=== PATIENT | male | born 1985 | race Caucasian/White ===

== ENCOUNTER 2017-07-05 20:40 | Emergency (ER) | payer SELFPAY ==
[~2017-07-05] VITALS: Ht 188 cm; Wt 103.4 kg
[~2017-07-05 20:40] MED LIST: AMOX500T PO; PRED20 PO; Z.0.NO CURRENT MEDS
[2017-07-05 20:54] VITALS: BP 154/85; PULSE 83; RESP 18; TEMP 98.2; O2SAT 97
--- NOTE | 2017-07-05 21:01 | PD ---
HPI Chief Complaint: Flank/Kidney Pain Time Seen by Provider: 21:00 Travel History International Travel<30 days: No Contact w/Intl Traveler<30days: No Traveled to known affect area: No History of Present Illness HPI 31-year-old male came to the emergency room with sudden onset of left-sided flank pain 45 minutes ago. Patient says the pain came out of nowhere. It made him double over. Currently the pain is 9 out of 10. It comes in waves. No aggravating or relieving factors identified. Initially the pain was radiating down his left scrotum. Currently is localized into the left flank. He has never had this kind of pain before. He has never had any history of renal calculus. No history of hematuria, fever or chills. No history of nausea vomiting. Vital signs are stable. [facility] Past Medical History Narrative Medical List of his past medical, surgical, social and family history is reviewed from the nursing note. ?: Not Social History Alcohol Use: No Tobacco Use: No Substance Use: No Allergies-Medications (Allergen,Severity, Reaction): Coded Allergies: No Known Allergies (Verified Allergy, Mild, 08/13/10) Comments No known drug allergies Reported Meds & Prescriptions Reported Meds & Active Scripts Active Colace (Docusate Sodium) 100 Mg Capsule 100 Mg PO BID Hydrocodone-Acetaminophen 5-325 mg Tab 1 Tab PO Q6H PRN Zofran Odt (Ondansetron Odt) 4 Mg Tab 4 Mg SL Q6HR PRN Narrative Medication List of his home medications reviewed from the nursing note Review of Systems Except as stated in HPI: all other systems reviewed are Neg Genitourinary: Positive: Flank Pain Physical Exam Narrative GENERAL: Awake, alert, significant distress SKIN: Focused skin assessment warm/dry. HEAD: Atraumatic. Normocephalic. EYES: Pupils equal and round. No scleral icterus. No injection or drainage. ENT: No nasal bleeding or discharge. Mucous membranes pink and moist. NECK: Trachea midline. No JVD. CARDIOVASCULAR: Regular rate and rhythm. No murmur appreciated. RESPIRATORY: No accessory muscle use. Clear to auscultation. Breath sounds equal bilaterally. GASTROINTESTINAL: Abdomen soft, non-tender, nondistended. Hepatic and splenic margins not palpable. MUSCULOSKELETAL: No obvious deformities. No clubbing. No cyanosis. No edema. NEUROLOGICAL: Awake and alert. No obvious cranial nerve deficits. Motor grossly within normal limits. Normal speech. PSYCHIATRIC: Appropriate mood and affect; insight and judgment normal. Data Data Last Documented VS Vital Signs Date Time Temp Pulse Resp B/P (MAP) Pulse Ox O2 Delivery O2 Flow Rate FiO2 07/05/17 21:15 18 07/05/17 20:54 98.2 83 154/85 (108) 97 Orders Orders Complete Blood Count With Diff (07/05/17 21:18) Comprehensive Metabolic Panel (07/05/17 21:18) Urinalysis - C+S If Indicated (07/05/17 21:18) Ct Abd/Pel W/O Iv Contrast (07/05/17 21:18) Ecg Monitoring (07/05/17 21:18) Iv Access Insert/Monitor (07/05/17 21:18) Ketorolac Inj (Toradol Inj) (07/05/17 21:30) Ondansetron Inj (Zofran Inj) (07/05/17 21:30) Sodium Chloride 0.9% Flush (Ns Flush) (07/05/17 21:30) Sodium Chlor 0.9% 1000 Ml Inj (Ns 1000 M (07/05/17 21:18) Hydromorphone Pf Inj (Dilaudid Pf Inj) (07/05/17 21:30) Hydromorphone Pf Inj (Dilaudid Pf Inj) (07/05/17 21:30) Ed Discharge Order (07/05/17 23:44) Labs Laboratory Tests Test 07/05/17 21:37 07/05/17 22:55 White Blood Count 13.5 TH/MM3 Red Blood Count 4.85 MIL/MM3 Hemoglobin 14.5 GM/DL Hematocrit 42.5 % Mean Corpuscular Volume 87.6 FL Mean Corpuscular Hemoglobin 29.8 PG Mean Corpuscular Hemoglobin Concent 34.1 % Red Cell Distribution Width 11.5 % Platelet Count 292 TH/MM3 Mean Platelet Volume 8.8 FL Neutrophils (%) (Auto) 64.4 % Lymphocytes (%) (Auto) 27.0 % Monocytes (%) (Auto) 7.0 % Eosinophils (%) (Auto) 0.6 % Basophils (%) (Auto) 1.0 % Neutrophils # (Auto) 8.8 TH/MM3 Lymphocytes # (Auto) 3.6 TH/MM3 Monocytes # (Auto) 0.9 TH/MM3 Eosinophils # (Auto) 0.1 TH/MM3 Basophils # (Auto) 0.1 TH/MM3 CBC Comment DIFF FINAL Differential Comment Blood Urea Nitrogen 17 MG/DL Creatinine 1.10 MG/DL Random Glucose 120 MG/DL Total Protein 8.1 GM/DL Albumin 3.9 GM/DL Calcium Level 9.3 MG/DL Alkaline Phosphatase 73 U/L Aspartate Amino Transf (AST/SGOT) 41 U/L Alanine Aminotransferase (ALT/SGPT) 60 U/L Total Bilirubin 0.5 MG/DL Sodium Level 138 MEQ/L Potassium Level 3.9 MEQ/L Chloride Level 106 MEQ/L Carbon Dioxide Level 22.6 MEQ/L Anion Gap 9 MEQ/L Estimat Glomerular Filtration Rate 78 ML/MIN Urine Color YELLOW Urine Turbidity CLEAR Urine pH 6.5 Urine Specific [place] 1.025 Urine Protein 30 mg/dL Urine Glucose (UA) NEG mg/dL Urine Ketones NEG mg/dL Urine Occult Blood LARGE Urine Nitrite NEG Urine Bilirubin NEG Urine Urobilinogen 0.2 MG/DL Urine Leukocyte Esterase NEG Urine RBC 50-99 /hpf Urine WBC 6-8 /hpf Urine Squamous Epithelial Cells 0-5 /hpf Urine Amorphous Sediment MOD Urine Mucus MANY /lpf Microscopic Urinalysis Comment CULT NOT INDICATED MDM Medical Decision Making Medical Screen Exam Complete: Yes Emergency Medical Condition: Yes Medical Record Reviewed: Yes Differential Diagnosis Renal colic, pyelonephritis, musculoskeletal pain Narrative Course 11:[address] scan shows a 4-5 mm mid ureteral stone with moderate hydronephrosis. Patient has slight leukocytosis. UA shows hematuria but no UTI. Patient was given pain medication and I just reassessed him. He says his pain is down to 0. I am comfortable discharging him home with instructions that he has understood. Procedures EKG Prior to Arrival: No Diagnosis Primary Impression: Renal colic on left side Referrals: Derik Townsend DO 3 days Primary Care Physician Additional Instructions: Take the medication as per the prescription direction. Follow-up with the urologist was name and number been provided to you on the discharge instruction. Call the urologist office tomorrow to get the appointment. Return to the ER if condition worsens or any other new concerns. The pain medication may cause constipation. There is prescription for stool laxative and he should take it while taking the pain medication to prevent this. Med/Other Pt SpecificInfo: Prescription(s) given Scripts Docusate Sodium (Colace) 100 Mg Capsule 100 MG PO BID for Prevent Constipation, #20 CAP 0 Refills Prov: Marcin Lind MD 07/05/17 Hydrocodone-Acetaminophen (Hydrocodone-Acetaminophen) 5-325 mg Tab 1 TAB PO Q6H Y for PAIN, #15 TAB 0 Refills Prov: Marcin Lind MD 07/05/17 Ondansetron Odt (Zofran Odt) 4 Mg Tab 4 MG SL Q6HR Y for Nausea/Vomiting, #15 TAB 0 Refills Prov: Marcin Lind MD 07/05/17 Disposition: 01 DISCHARGE HOME Condition: Stable Marcin Lind MD July 05, 2017 21:00
[2017-07-05] MEDS ORDERED: SODIUM CHLOR 0.9% 1000 ML INJ 1,000 ML IV ONE (21:18)
[2017-07-05] MEDS ORDERED: HYDROmorphone HCL PF 1 MG/ML VIAL IV PUSH ONE (21:30)
[2017-07-05] MEDS ORDERED: SODIUM CHLORIDE 0.9% FLUSH 10 ML FLUSH IVF PRN (21:30)
[2017-07-05] MEDS ORDERED: HYDROmorphone HCL PF 2 MG/ML VIAL IV ONE (21:30)
[2017-07-05] MEDS ORDERED: KETOROLAC TROMETHAMINE 30 MG/ML (IVP) VIAL IV PUSH ONE (21:30)
[2017-07-05] MEDS ORDERED: ONDANSETRON HCL 4 MG/2 ML VIAL IV PUSH ONE (21:30)
[2017-07-05 21:43] LABS: AUTOMATED NEUTROPHIL # 8.8 TH/MM3 (1.8-7.7); BASOPHIL # 0.1 TH/MM3 (0-0.2); EOSINOPHIL # 0.1 TH/MM3 (0-0.4); EOSINOPHIL % 0.6 % (0.0-4.0); HEMATOCRIT 42.5 % (39.0-51.0); HEMOGLOBIN 14.5 GM/DL (13.0-17.0); LYMPHOCYTE # 3.6 TH/MM3 (1.0-4.8); MEAN CELL VOLUME 87.6 FL (80.0-100.0); MEAN CORPUSCULAR HEMOGLOBIN 29.8 PG (27.0-34.0); MEAN CORPUSCULAR HGB CONC 34.1 % (32.0-36.0); MEAN PLATELET VOLUME 8.8 FL (7.0-11.0); MONOCYTE # 0.9 TH/MM3 (0-0.9); NEUT % 64.4 % (16.0-70.0); PLATELET COUNT 292 TH/MM3 (150-450); RED BLOOD COUNT 4.85 MIL/MM3 (4.50-5.90); RED CELL DISTRIBUTION WIDTH 11.5 % (11.6-17.2); WHITE BLOOD COUNT 13.5 TH/MM3 (4.0-11.0)
--- NOTE | 2017-07-05 22:10 | RADRPT ---
EXAM DATE: 07/05/2017 10:03 PM EDT AGE/SEX: 31 years / Male INDICATIONS: Left flank pain. CLINICAL DATA: This is the patient's initial encounter. Patient reports that signs and symptoms have been present for 1 day and indicates a pain score of 8/10. MEDICAL/SURGICAL HISTORY: None. None. RADIATION DOSE: 16.10 CTDI (mGy) COMPARISON: No prior [facility] exams available for comparison. TECHNIQUE: Multiple contiguous axial images were obtained through the abdomen. Images were obtained using multiple row detector helical technique. Using dose reduction techniques, radiation dose was ke pt as low as reasonably achievable to obtain optimal diagnostic quality images. FINDINGS: LOWER LUNGS: The visualized lower lungs are clear. LIVER: Visualized portions of the liver demonstrate homogeneous density without intrahepatic ductal dilatation. No calcified gallstones. SPLEEN: Homogeneous density without enlargement. PANCREAS: Unremarkable without mass or calcification. KIDNEYS: 2 mm calcified calyceal calculus in the superior pole of the right kidney. 4 x 5 mm calcifi ed calculus in the mid left ureter with associated mild to moderate left-sided hydroureteronephrosis. 2 very subtle punctate calyceal calcifications in superior pole of the left kidney. No contour defor eloise renal abnormalities. ADRENAL GLANDS: Unremarkable. AORTA: Kathy-aneurysmal. BOWEL/MESENTERY: The bowel loops are grossly unremarkable. Normal appendix. The cecum and sigmoid co laz have a normal configuration. ABDOMINAL WALL: Intact. RETROPERITONEUM: No evidence of adenopathy in the retrocrural, para-aortic, or deep pelvic regions. BLADDER: Decompressed. No radiopaque calculi. REPRODUCTIVE: No abnormal masses or calcifications seen. BONY STRUCTURES: Small bone islands in the right ilium and sacrum. Probable Schmorl's node in the arellano perior endplate of L5. Otherwise, no abnormal lytic or blastic bony lesions. CONCLUSION: 1. 4 x 5 mm mid left ureteral calculus with associated mild to moderate left-sided hydroureteronephr osis. 2. Single 2 mm calyceal calculus in the superior pole the right kidney and 2 very subtle punctate ca lyceal calculi in the superior pole of the left kidney. Electronically signed by: Jem Marquez MD 07/05/2017 10:08 PM EDT
[2017-07-05 22:12] LABS: CHLORIDE 106 MEQ/L (98-107); SODIUM (NA) 138 MEQ/L (136-145)
[2017-07-05 22:15] LABS: CALCIUM 9.3 MG/DL (8.5-10.1)
[2017-07-05 22:16] LABS: ALBUMIN 3.9 GM/DL (3.4-5.0); BICARBONATE 22.6 MEQ/L (21.0-32.0); BLOOD UREA NITROGEN 17 MG/DL (7-18); GLUCOSE,RANDOM 120 MG/DL (74-106)
[2017-07-05 22:19] LABS: AST (GOT) 41 U/L (15-37); GLOMERULAR FILTRATION RATE 78 ML/MIN (>89)
[2017-07-05 22:20] LABS: TOTAL BILIRUBIN ADULT 0.5 MG/DL (0.2-1.0); TOTAL PROTEIN 8.1 GM/DL (6.4-8.2)
[2017-07-05 22:22] LABS: ALKALINE PHOSPHATASE 73 U/L (45-117)
[2017-07-05 22:35] LABS: ALT (GPT) 60 U/L (12-78)
[2017-07-05 23:21] LABS: BILIRUBIN, URINE NEG (NEG); BLOOD, URINE LARGE (NEG); GLUCOSE,URINE NEG (NEG); KETONE, URINE NEG (NEG); NITRITE,URINE NEG (NEG); PH, URINE 6.5 (5.0-8.5); URINE COLOR YELLOW (YELLW/STRAW); URINE LEUKOCYTE ESTERASE NEG (NEG)
[2017-07-05 23:29] LABS: MUCUS URINE MANY /lpf (OCC)
[2017-07-05 23:32] LABS: AMORPHOUS SEDIMENT, URINE MOD; SQUAMOUS EPITHELIAL CELL URINE 0-5 /hpf (0-5)
[2017-07-05] MEDS ORDERED: HYDR-3516 PO (23:49)
[2017-07-05] MEDS ORDERED: COLA100C5 PO (23:49)
[2017-07-05] MEDS ORDERED: ZOFR4TAB3 SL (23:49)
== END 2017-07-06 00:05 | disposition home or self-care (01) ==
LOC: PHED 20:40
DX: N23 Unspecified renal colic (principal); N20.1 Calculus of ureter; N13.30 Unspecified hydronephrosis; D72.829 Elevated white blood cell count, unspecified; R31.9 Hematuria, unspecified
CPT/HCPCS: 74176; 80053; 81001; 85025; 96361; 96374; 96375; 99284; J1170; J1885; J2405; J7030

== ENCOUNTER 2017-07-26 15:42 | Emergency (ER) | payer OTHER ==
[~2017-07-26 15:42] MED LIST changes: -AMOX500T PO; +COLA100C5 PO; +HYDR-3516 PO; -PRED20 PO; -Z.0.NO CURRENT MEDS; +ZOFR4TAB3 SL
[2017-07-26 15:53] VITALS: BP 175/90; PULSE 77; RESP 22; TEMP 97.1; O2SAT 100
[2017-07-26] MEDS ORDERED: KETOROLAC TROMETHAMINE 30 MG/ML (IVP) VIAL IV PUSH ONE (16:00)
[2017-07-26] MEDS ORDERED: ONDANSETRON ODT 4 MG TAB PO ONE ×2 (16:00→19:30)
[2017-07-26] MEDS ORDERED: MORPHINE SULFATE 2 MG/ML SYRINGE IV PUSH ONE (16:00)
[2017-07-26] MEDS ORDERED: SODIUM CHLOR 0.9% 1000 ML INJ 1,000 ML IV ONE ×3 (16:00→18:30)
[2017-07-26] MEDS ORDERED: MORPHINE SULFATE 4 MG/ML INJ ONE (16:04)
[2017-07-26 16:16] LABS: AUTOMATED NEUTROPHIL # 9.5 TH/MM3 (1.8-7.7); BASOPHIL # 0.1 TH/MM3 (0-0.2); BASOPHIL % 0.7 % (0.0-2.0); EOSINOPHIL % 0.2 % (0.0-4.0); HEMATOCRIT 44.1 % (39.0-51.0); HEMOGLOBIN 15.3 GM/DL (13.0-17.0); LYMPH % 22.2 % (9.0-44.0); MEAN CELL VOLUME 88.6 FL (80.0-100.0); MEAN CORPUSCULAR HEMOGLOBIN 30.7 PG (27.0-34.0); MEAN CORPUSCULAR HGB CONC 34.7 % (32.0-36.0); MEAN PLATELET VOLUME 8.6 FL (7.0-11.0); MONO % 6.5 % (0.0-8.0); MONOCYTE # 0.9 TH/MM3 (0-0.9); NEUT % 70.4 % (16.0-70.0); PLATELET COUNT 290 TH/MM3 (150-450); RED BLOOD COUNT 4.98 MIL/MM3 (4.50-5.90); RED CELL DISTRIBUTION WIDTH 12.7 % (11.6-17.2); WHITE BLOOD COUNT 13.6 TH/MM3 (4.0-11.0)
[2017-07-26 16:22] LABS: BILIRUBIN, URINE NEG (NEG); BLOOD, URINE LARGE (NEG); GLUCOSE,URINE NEG (NEG); KETONE, URINE 40 mg/dL (NEG); MUCUS URINE FEW /lpf (OCC); NITRITE,URINE NEG (NEG); PH, URINE 6.5 (5.0-8.5); URINE COLOR YELLOW (YELLW/STRAW); URINE LEUKOCYTE ESTERASE NEG (NEG)
--- NOTE | 2017-07-26 16:24 | PD ---
HPI Chief Complaint: Flank/Kidney Pain Time Seen by Provider: 15:58 Travel History International Travel<30 days: No Contact w/Intl Traveler<30days: No Traveled to known affect area: No History of Present Illness HPI 31-year-old male with no significant medical history presents emergency department for evaluation of acute onset left-sided flank pain that radiates to the lower abdomen and testicle. This started around 10 AM today. It is worsened throughout the day. It is intermittently sharp stabbing, severe. Patient has noticed a darkening in his urine. States he is diagnosed with a kidney stone at the end of June. He has not had any difficulty since then. He does have an appointment with urology at the end of this month. Patient reports mild nausea that comes in waves. He has had no fever or chills. He has no other symptoms to report. [facility] Past Medical History Medical History: Denies Significant Hx Social History Alcohol Use: Yes ([facility]) Tobacco Use: No Substance Use: No Allergies-Medications (Allergen,Severity, Reaction): Coded Allergies: No Known Allergies (Verified Allergy, Mild, 07/26/17) Reported Meds & Prescriptions Reported Meds & Active Scripts Active Hydrocodone-Acetaminophen 5-325 mg Tab 1 Tab PO Q6H PRN Review of Systems Except as stated in HPI: all other systems reviewed are Neg Physical Exam Narrative GENERAL: Well-nourished male patient, in mild distress secondary to pain SKIN: Focused skin assessment warm/dry. HEAD: Atraumatic. Normocephalic. EYES: Pupils equal and round. No scleral icterus. No injection or drainage. ENT: No nasal bleeding or discharge. Mucous membranes pink and moist. NECK: Trachea midline. No JVD. CARDIOVASCULAR: Regular rate and rhythm. No murmur appreciated. RESPIRATORY: No accessory muscle use. Clear to auscultation. Breath sounds equal bilaterally. GASTROINTESTINAL: Abdomen soft, non-tender, nondistended. Hepatic and splenic margins not palpable. Left CVA tenderness. No guarding. No rebound tenderness MUSCULOSKELETAL: No obvious deformities. No clubbing. No cyanosis. No edema. NEUROLOGICAL: Awake and alert. No obvious cranial nerve deficits. Motor grossly within normal limits. Normal speech. PSYCHIATRIC: Appropriate mood and affect; insight and judgment normal. Data Data Last Documented VS Vital Signs Date Time Temp Pulse Resp B/P (MAP) Pulse Ox O2 Delivery O2 Flow Rate FiO2 6/13/18 16:26 76 18 160/85 (110) 100 Room Air 07/26/17 15:53 97.1 Orders Orders Iv Access Insert/Monitor (07/26/17 15:59) Complete Blood Count With Diff (07/26/17 15:59) Basic Metabolic Panel (Bmp) (07/26/17 15:59) Urinalysis - C+S If Indicated (07/26/17 15:59) Ct Abd/Pel W/O Iv Contrast (07/26/17 ) Ketorolac Inj (Toradol Inj) (07/26/17 16:00) Morphine Inj (Morphine Inj) (07/26/17 16:00) Ondansetron Odt (Zofran Odt) (07/26/17 16:00) Sodium Chlor 0.9% 1000 Ml Inj (Ns 1000 M (07/26/17 16:00) Morphine Inj (Morphine Inj) (07/26/17 16:04) Hydromorphone Pf Inj (Dilaudid Pf Inj) (07/26/17 16:30) Hydromorphone Pf Inj (Dilaudid Pf Inj) (07/26/17 17:30) Sodium Chlor 0.9% 1000 Ml Inj (Ns 1000 M (07/26/17 17:30) Sodium Chlor 0.9% 1000 Ml Inj (Ns 1000 M (07/26/17 18:30) Oxycodone-Acetamin 10-325 Mg (Percocet 1 (07/26/17 19:15) Labs Laboratory Tests Test 07/26/17 16:05 White Blood Count 13.6 TH/MM3 Red Blood Count 4.98 MIL/MM3 Hemoglobin 15.3 GM/DL Hematocrit 44.1 % Mean Corpuscular Volume 88.6 FL Mean Corpuscular Hemoglobin 30.7 PG Mean Corpuscular Hemoglobin Concent 34.7 % Red Cell Distribution Width 12.7 % Platelet Count 290 TH/MM3 Mean Platelet Volume 8.6 FL Neutrophils (%) (Auto) 70.4 % Lymphocytes (%) (Auto) 22.2 % Monocytes (%) (Auto) 6.5 % Eosinophils (%) (Auto) 0.2 % Basophils (%) (Auto) 0.7 % Neutrophils # (Auto) 9.5 TH/MM3 Lymphocytes # (Auto) 3.0 TH/MM3 Monocytes # (Auto) 0.9 TH/MM3 Eosinophils # (Auto) 0.0 TH/MM3 Basophils # (Auto) 0.1 TH/MM3 CBC Comment DIFF FINAL Differential Comment Urine Color YELLOW Urine Turbidity CLEAR Urine pH 6.5 Urine Specific [place] 1.020 Urine Protein TRACE mg/dL Urine Glucose (UA) NEG mg/dL Urine Ketones 40 mg/dL Urine Occult Blood LARGE Urine Nitrite NEG Urine Bilirubin NEG Urine Urobilinogen LESS THAN 2.0 MG/DL Urine Leukocyte Esterase NEG Urine RBC 133 /hpf Urine WBC 5 /hpf Urine Mucus FEW /lpf Microscopic Urinalysis Comment CULT NOT INDICATED Blood Urea Nitrogen 14 MG/DL Creatinine 1.42 MG/DL Random Glucose 140 MG/DL Calcium Level 9.9 MG/DL Sodium Level 141 MEQ/L Potassium Level 3.5 MEQ/L Chloride Level 106 MEQ/L Carbon Dioxide Level 18.3 MEQ/L Anion Gap 17 MEQ/L Estimat Glomerular Filtration Rate 58 ML/MIN MDM Medical Decision Making Medical Screen Exam Complete: Yes Emergency Medical Condition: Yes Medical Record Reviewed: Yes Differential Diagnosis UTI versus STD versus renal calculi versus renal colic Narrative Course 31-year-old male presents emergency department for evaluation of left-sided flank pain. Patient appears in moderate distress secondary to pain. Vital signs are stable. He is treated for pain and given IV fluids. Laboratory Tests Test 07/26/17 16:05 White Blood Count 13.6 TH/MM3 Red Blood Count 4.98 MIL/MM3 Hemoglobin 15.3 GM/DL Hematocrit 44.1 % Mean Corpuscular Volume 88.6 FL Mean Corpuscular Hemoglobin 30.7 PG Mean Corpuscular Hemoglobin Concent 34.7 % Red Cell Distribution Width 12.7 % Platelet Count 290 TH/MM3 Mean Platelet Volume 8.6 FL Neutrophils (%) (Auto) 70.4 % Lymphocytes (%) (Auto) 22.2 % Monocytes (%) (Auto) 6.5 % Eosinophils (%) (Auto) 0.2 % Basophils (%) (Auto) 0.7 % Neutrophils # (Auto) 9.5 TH/MM3 Lymphocytes # (Auto) 3.0 TH/MM3 Monocytes # (Auto) 0.9 TH/MM3 Eosinophils # (Auto) 0.0 TH/MM3 Basophils # (Auto) 0.1 TH/MM3 CBC Comment DIFF FINAL Differential Comment Urine Color YELLOW Urine Turbidity CLEAR Urine pH 6.5 Urine Specific [place] 1.020 Urine Protein TRACE mg/dL Urine Glucose (UA) NEG mg/dL Urine Ketones 40 mg/dL Urine Occult Blood LARGE Urine Nitrite NEG Urine Bilirubin NEG Urine Urobilinogen LESS THAN 2.0 MG/DL Urine Leukocyte Esterase NEG Urine RBC 133 /hpf Urine WBC 5 /hpf Urine Mucus FEW /lpf Microscopic Urinalysis Comment CULT NOT INDICATED Blood Urea Nitrogen 14 MG/DL Creatinine 1.42 MG/DL Random Glucose 140 MG/DL Calcium Level 9.9 MG/DL Sodium Level 141 MEQ/L Potassium Level 3.5 MEQ/L Chloride Level 106 MEQ/L Carbon Dioxide Level 18.3 MEQ/L Anion Gap 17 MEQ/L Estimat Glomerular Filtration Rate 58 ML/MIN Last Impressions Abdomen/Pelvis CT 07/26/17 0000 Signed Impressions: CONCLUSION: 1. 3 mm stone left UVJ with moderate obstruction. 2. Tiny calcifications right kidney measuring less than 1 mm. Patient has mild leukocytosis. He does have a 3 mm stone in the left UVJ with moderate obstruction. He has been given IV fluids and multiple doses of pain medication. Patient would like to attempt going home to pass the stone. He agrees to return immediately with acute worsening of symptoms. Diagnosis Primary Impression: Renal calculi Referrals: Primary Care Physician Urologist Patient Instructions: General Instructions, Kidney Stones (ED) Departure Forms: Tests/Procedures, Work Release Enter return to work date: Jul 29, 2017 Additional Instructions: Maintain adequate oral hydration Follow-up with a primary care provider Seek urology evaluation Return immediately with acute worsening symptoms Med/Other Pt SpecificInfo: Prescription(s) given Scripts Naproxen (Naproxen) 500 Mg Tab 500 MG PO BID Y for PAIN SCALE 1 TO 10, #30 TAB 0 Refills Prov: Jeanine Boone 07/26/17 Tamsulosin (Flomax) 0.4 Mg Cap 0.4 MG PO HS for Manage Prostate Problems, #5 CAP 0 Refills Prov: Jeanine Boone 07/26/17 Oxycodone-Acetaminophen (Percocet) 5-325 mg Tab 1-2 TAB PO Q6H Y for PAIN GREATER THAN 6, #15 TAB 0 Refills Prov: Jeanine Boone 07/26/17 Disposition: 01 DISCHARGE HOME Condition: Stable Jeanine Boone Jul 26, 2017 16:24
[2017-07-26 16:26] VITALS: BP 160/85; PULSE 76; RESP 18; O2SAT 100
[2017-07-26] MEDS ORDERED: HYDROmorphone HCL PF 0.5 MG/0.5 ML SYRINGE IV PUSH ONE ×2 (16:30→17:30)
[2017-07-26 16:39] LABS: BICARBONATE 18.3 MEQ/L (21.0-32.0); CALCIUM 9.9 MG/DL (8.5-10.1); CREATININE 1.42 MG/DL (0.60-1.30)
--- NOTE | 2017-07-26 17:39 | RADRPT ---
EXAM DATE: 07/26/2017 5:18 PM EDT AGE/SEX: 31 years / Male INDICATIONS: Left sided flank pain, nausea. CLINICAL DATA: This is the patient's initial encounter. Patient reports that signs and symptoms have been present for 1 day and indicates a pain score of 10/10. MEDICAL/SURGICAL HISTORY: None. None. RADIATION DOSE: 15.14 CTDI (mGy) COMPARISON: [facility], CT ABDOMEN & PELVIS W/O CONTRAST, 07/05/2017. . TECHNIQUE: Multiple contiguous axial images were obtained through the abdomen. Images were obtained using multiple row detector helical technique. Using dose reduction techniques, radiation dose was ke pt as low as reasonably achievable to obtain optimal diagnostic quality images. FINDINGS: The lung bases are clear. The liver and gallbladder unremarkable Pancreas and spleen appear normal. Small splenial is seen tail of the pancreas. Adrenal glands appear normal Right kidney: Tiny stones are seen in the right kidney measuring less than 1 mm. Left kidney: There is perinephric stranding present left kidney with a 3 mm irregular shaped stone at the left UVJ. There are no inflammatory changes in the abdomen Prostate is mildly prominent. CONCLUSION: 1. 3 mm stone left UVJ with moderate obstruction. 2. Tiny calcifications right kidney measuring less than 1 mm. Electronically signed by: Pranav Rodriguez MD 07/26/2017 5:37 PM EDT
[2017-07-26] MEDS ORDERED: TAMS5CAP PO (19:13)
[2017-07-26] MEDS ORDERED: PERC5TAB12 PO (19:13)
[2017-07-26] MEDS ORDERED: NAPR500T2 PO (19:13)
[2017-07-26] MEDS ORDERED: oxyCODONE/ACETAMINOPHEN 10 MG/325 MG TAB PO ONE (19:15)
[2017-07-26] MEDS ORDERED: PROCHLORPERAZINE INJ 10 MG/2 ML VIAL IV PUSH ONE (19:30)
[2017-07-26] MEDS ORDERED: diphenhydrAMINE HCL 50 MG/ML VIAL IV PUSH ONE (19:30)
== END 2017-07-26 21:22 | disposition home or self-care (01) ==
LOC: NEPE 15:42
DX: N20.2 Calculus of kidney with calculus of ureter (principal); R11.0 Nausea; D72.829 Elevated white blood cell count, unspecified
CPT/HCPCS: 74176; 80048; 81001; 85025; 96361; 96374; 96375; 96376; 99284; J0780; J1170; J1200; J1885; J2270; J7030